=== PATIENT | male | born 1965 | race Caucasian/White ===

== ENCOUNTER 2018-04-23 15:32 | Emergency (ER) | payer MEDICARE, MEDICAID ==
[2018-04-23 16:01] VITALS: BP 118/76
--- NOTE | 2018-04-23 16:17 | UC ---
Complaint Male HPI - HPI Summary HPI Summary: pt is c/o an "abscess between my junk and but hole". states started about 1 week ago and is worsening. has had the same 2-3x's in the past but it always stayed small and drained clear if he squeezed it. denies fever, DM and abdominal pain but has had MRSA in a post op site after back surgery in the past. - History of Current Complaint Chief Complaint: UCSkin Stated Complaint: PERSONAL Time Seen by Provider: 04/23/18 16:00 Hx Obtained From: Patient Onset/Duration: Gradual Onset Timing: Constant Pain Intensity: 4 Aggravating Factor(s): Other - being seated Alleviating Factor(s): Nothing Associated Signs And Symptoms: Negative: Fever, Rectal Pain - Allergies/Home Medications Allergies/Adverse Reactions: Allergies Allergy/AdvReac Type Severity Reaction Status Date / Time blueberry Allergy Vomiting Uncoded 04/23/18 16:02 wheezing Home Medications: Home Medications Gemfibrozil TAB* [Lopid TAB*] 600 mg PO DAILY 04/23/18 [History Confirmed 04/23] PMH/Surg Hx/FS Hx/Imm Hx - Additional Past Medical History Additional PMH: clotting disorder, DVT's BUE's. Ch back pain. Endocrine History: Thyroid Disease, Dyslipidemia GI/ History: Gastroesophageal Reflux - Surgical History Surgical History: Yes Surgery Procedure, Year, and Place: nerve on left arm; back, and emergency evac due to to MRSA - Family History Known Family History: Positive: Unknown - Social History Occupation: Disabled Lives: With Family Alcohol Use: None Substance Use Type: Marijuana Substance Use Comment - Amount & Last Used: daily numerous times per day Smoking Status (MU): Heavy Every Day Tobacco Smoker Type: Cigarettes Amount Used/How Often: MORE THAN A 1 pack/day - Immunization History Most Recent Tetanus Shot: 2015 Vaccination Up to Date: Yes Review of Systems Constitutional: Negative Skin: Other - abscess base of L scrotum/inner thigh area Eyes: Negative ENT: Negative Respiratory: Negative Cardiovascular: Negative Gastrointestinal: Negative Genitourinary: Negative Motor: Negative Neurovascular: Negative Musculoskeletal: Negative Neurological: Negative Psychological: Negative Is Patient Immunocompromised?: No All Other Systems Reviewed And Are Negative: Yes Physical Exam Triage Information Reviewed: Yes Appearance: Well-Appearing Vital Signs: Initial Vital Signs Temp 97.4 F 04/23/18 15:49 Pulse 74 08/07/18 15:49 Resp 24 04/23/18 15:49 BP 118/76 04/23/18 15:49 Pulse Ox 96 04/23/18 15:49 Vital Signs Reviewed: Yes Eyes: Positive: Conjunctiva Clear ENT: Positive: Normal ENT inspection Neck: Positive: Supple, Nontender, No Lymphadenopathy Respiratory: Positive: Lungs clear, Normal breath sounds Cardiovascular: Positive: RRR, No Murmur Abdomen Description: Positive: Nontender, No Organomegaly, Soft, Other: - No inguinal adenopathy.. Negative: Distended, Guarding Bowel Sounds: Positive: Present Male Genital Exam: Positive: Normal Genitalia, Other - Base of L side scrotum and junction of L inner thigh has an area of deep induration and tendernes but no erythema or warmth to surface. Musculoskeletal: Positive: ROM Intact Neurological: Positive: Alert Psychological: Positive: Age Appropriate Behavior Skin Exam: Normal Complaint Male Course/Dx - Course Course Of Treatment: case d/w Dr Moses who examined area with myself. Large deep seated abscess in a delicate area on a pt taking Xarelto thus ER transfer for additional evaluation and tx. No concern for Gary's Gangrene. . [facility] called, report given to Dr Boothe. Advised of very deep abscess to base of L scrotum to inner thight, hx mrsa and on xarelto. - Differential Dx/Diagnosis Provider Diagnoses: Deep abscess to base of L scrotum and innner thigh junction Discharge - Sign-Out/Discharge Documenting (check all that apply): Patient Departure - Discharge Plan Condition: Stable Disposition: TRANS HIGHER LVL OF CARE FAC Referrals: Sapna Stevens MD [Primary Care Provider] - Additional Instructions: LEAVE HERE AND GO DIRECTLY TO THE [facility] DISCUSSED - Billing Disposition and Condition Condition: STABLE Disposition: Trans Higher Lvl of Care Fac
== END 2018-04-23 16:22 | disposition short-term general hospital (02) ==
LOC: UCCORT 15:32
DX: N49.2 Inflammatory disorders of scrotum (principal); E11.9 Type 2 diabetes mellitus without complications; Z86.14 Personal history of Methicillin resistant Staphylococcus aureus infection; E78.5 Hyperlipidemia, unspecified; F17.210 Nicotine dependence, cigarettes, uncomplicated
CPT/HCPCS: 99202; G0463

== ENCOUNTER 2018-11-20 13:17 | Emergency (ER) | payer MEDICARE, MEDICAID ==
[2018-11-20 14:03] VITALS: BP 135/76
== END 2018-11-20 14:15 | disposition left against medical advice (07) ==
LOC: UCCORT 13:17
DX: Z53.21 Procedure and treatment not carried out due to patient leaving prior to being seen by health care provider (principal)

== ENCOUNTER 2019-11-27 12:58 | Day surgery (SDC) | payer MEDICAID, MEDICARE ==
[~2019-11-27 12:58] MED LIST: Buffered Lidocaine 1% SYRIN* 1 ML/SYRINGE INTRADERM ONE; Lactated Ringers 1000 ML Bag* 1,000 ML IV SCH
[2019-11-27] MEDS ORDERED: ceFAZolin 2 GM PREMIX in ORs 2 GM/50 ML BAG ONE (13:10)
[2019-11-27] MEDS ORDERED: Midazolam* 1 MG/ML 2 ML VIAL (2 MG) ONE ×3 (13:21→14:48)
[2019-11-27] MEDS ORDERED: ceFAZolin VIAL(*) VIAL ONE (13:24)
[2019-11-27] MEDS ORDERED: Famotidine IV* 10 MG/ML 2 ML (20 mg) ONE (13:52)
[2019-11-27] MEDS ORDERED: Midazolam* 1 MG/ML 5 ML VIAL (5 MG) ONE (14:40)
[2019-11-27] MEDS ORDERED: fentaNYL* 50 MCG/ML 2 ML VIAL (100 MCG VIAL) ONE ×2 (14:48→15:40)
[2019-11-27] MEDS ORDERED: Lidocaine 2% PF * 5 ML VIAL ONE (14:50)
[2019-11-27] MEDS ORDERED: Dexamethasone IV* 4 MG/ML 1 ML (4 MG) ONE (14:50)
[2019-11-27] MEDS ORDERED: Ketorolac INJ* 30 MG/ML 1 ML VIAL ONE (14:50)
[2019-11-27] MEDS ORDERED: Acetaminophen IV 1GM/100ML * 100 ML ONE (14:50)
[2019-11-27] MEDS ORDERED: Propofol* 10 MG/ML 20 ML BTL ONE (14:50)
[2019-11-27] MEDS ORDERED: Bupivacaine 0.25% SDV* 30 ML ONE (15:00)
[2019-11-27] MEDS ORDERED: diPHENhydraMINE IV* 50 MG/ML 1 ml VIAL (BENADRYL) IV PRN (15:21)
[2019-11-27] MEDS ORDERED: oxyCODONE TAB* 5 MG TAB PO PRN ×2 (15:21)
[2019-11-27] MEDS ORDERED: Levalbuterol 0.63MG/3ML NEB* UNIT OF USE INH PRN (15:21)
[2019-11-27] MEDS ORDERED: fentaNYL* 50 MCG/ML 2 ML VIAL (100 MCG VIAL) IV PRN (15:21)
[2019-11-27] MEDS ORDERED: Naloxone* 0.4 MG/ML 1 ML VIAL IV PRN (15:21)
[2019-11-27] MEDS ORDERED: Ondansetron INJ* 2 MG/ML VIAL IV PRN (15:21)
[2019-11-27] MEDS ORDERED: DiMENhydriNATE IV* 50 MG/ML VIAL IV PUSH PRN (15:21)
[2019-11-27] MEDS ORDERED: Labetalol IV* 5 MG/ML 20 ML VIAL ONE (15:29)
[2019-11-27 18:32] VITALS: BP 115/66
--- NOTE | 2019-11-28 01:44 | OP ---
DATE OF OPERATION: 11/27/19 - [facility] DATE OF : 63 SURGEON: Matthew Triplett MD WAX BALL MOLDER: EDYTA Pfeiffer. An shipping assistant was needed for the entirety of the procedure to aid in positioning of the arm and retraction. ANESTHESIOLOGIST: Dr. Galvan. ANESTHESIA: General. PRE-OP DIAGNOSIS: Left scaphoid nonunion. POST-OP DIAGNOSIS: Left scaphoid nonunion. OPERATIVE PROCEDURE: Repair of the left scaphoid nonunion with autogenous distal radius bone graft. INDICATIONS: Danilo had a high-energy scaphoid fracture. He has not immobilized it; the wrist is very painful. CT scan confirms the nonunion. We talked about treatment options. He wanted to have a repair. He understands the risks of not healing despite surgery. ESTIMATED BLOOD LOSS: 2 mL. COMPLICATIONS: None. FINDINGS: See above and below. DESCRIPTION OF PROCEDURE: Mr. Barlow was seen in the preoperative holding area. The correct site, side, and procedures were identified. We came back to the operating room where the arm was prepped and draped in the usual fashion and was thoroughly scrubbed and then prepped out with Betadine scrub and time- out was performed. The arm was exsanguinated with the Esmarch and the tourniquet was inflated. He had had that little the wound that healed up and just to make sure I went ahead and covered that up and filled it up with some Tegaderm but the wound was healed. I went ahead and then made an anterior incision starting over the distal FCR tendon and brought back longitudinally in line with the scaphoid. Dissection was carried down. Distally, the thenar muscles were split. The FCR sheath was opened up. The tendon was retracted. The subsheath was opened up. The subperiosteal dissection revealed the anterior scaphoid. This was taken down where a fraying to nonunion was encountered with absolutely no bony healing. I was having difficulty controlling the proximal fragment. So, I went ahead and in anticipation of needing to harvest some bone graft, I made a dorsal incision at Mary's tubercle and extended down towards little bit proximal and distal, extending down distally over the wrist. I went ahead and opened up the third dorsal compartment and transposed the tendon. I did go ahead and open up the dorsal wrist capsule and I placed the K- wire in the proximal pole of the scaphoid as well as I pinned the lunate through the distal radius in neutral flexion and extension. This gave me good control of the proximal row. I went ahead and clipped the K-wire, pinning the lunate in place and then turned the palm back over. I was now able to book open the nonunion. I was able to curette out all the fibrous tissue. I turned the hand back over and then I made a dorsal cortical window to his proximal Mary's tubercle. I harvested the cancellous bone graft in standard fashion. I then turned the hand back over and I packed all of the cancellous bone graft into the nonunion site, filling up the void that was present dorsally where the fibrous tissue had been. I then reduced the fracture, I pinned it provisionally with a 0.045 K-wire. I confirmed the alignment on mini C-arm fluoroscopy. I thought that maybe I could get a pin in antegrade fashion and so I did flex the wrist down and briefly, I attempted to place a K-wire for standard Acutrak screw; but, as I turned the wrist back over, I noted that I had lost some of the reduction, so I just pulled that pin out. I then re- reduced and pinned the fracture. I then used the osteotome to exercise the palmar lip of the trapezium, so I could get a good center-center position to start my K-wire in retrograde fashion. I advanced the K-wire down under mini C-arm fluoroscopy down right into the proximal pole in the central aspect. I measured and selected a 26-mm screw. I then advanced a K-wire across and out the bone I drilled. I then placed my 26-mm shipping and receiving operator just so barely began to engage the proximal fragment. I then pulled my provisional K-wire out. I had already pulled my wire out of the lunate. I then advanced the shipping and receiving operator. I got anatomic reduction and excellent compression. Final mini C-arm fluoroscopic imaging showed excellent reduction, excellent placement of the bone graft. The wound was then irrigated out. The volar ligaments were repaired with 3-0 Ethibond suture as was the FCR subsheath. The skin was then closed with 4-0 nylon suture. I then repaired the little split I have made in the extensor retinaculum with 3-0 PDS suture. The skin dorsally was closed with 4-0 nylon suture. 0.25% Marcaine was infiltrated all around the operative area. Wounds were dressed with Xeroform, 4x4, sterile Webril, and a thumb spica splint with IP joint free was applied. He was taken to the recovery room in stable condition. [id number]/CPS #: [id number] MTDD
== END 2019-11-27 18:51 | disposition home or self-care (01) ==
LOC: OREAST 12:58
PROVIDERS: ATTEND Orthopaedic Surgery Hand Surgery
DX: S62.002K Unspecified fracture of navicular [scaphoid] bone of left wrist, subsequent encounter for fracture with nonunion (principal); E03.9 Hypothyroidism, unspecified; K21.9 Gastro-esophageal reflux disease without esophagitis; E78.5 Hyperlipidemia, unspecified; F17.210 Nicotine dependence, cigarettes, uncomplicated; J44.9 Chronic obstructive pulmonary disease, unspecified; M15.9 Polyosteoarthritis, unspecified; Z79.01 Long term (current) use of anticoagulants; V49.9XXD Car occupant (driver) (passenger) injured in unspecified traffic accident, subsequent encounter; Z79.51 Long term (current) use of inhaled steroids; Z86.14 Personal history of Methicillin resistant Staphylococcus aureus infection
CPT/HCPCS: 76000; C1713; C1769; C1776; J0690; J1100; J1885; J2250; J2704; J3010; J3490